=== PATIENT | female | born 1980 | race Caucasian/White ===

== ENCOUNTER 2016-11-28 10:48 | Inpatient (IN) | payer MEDICAID, OTHER ==
[~2016-11-28] VITALS: Ht 180.3 cm; Wt 186.4 kg
[2016-11-28 11:51] LABS: BASOPHILS % (AUTO) 0.7 % (0.0-2.0); EOSINOPHILS % (AUTO) 1.6 % (1.0-6.0); HEMATOCRIT 36.4 % (36-46); HEMOGLOBIN 12.1 g/dL (12.0-16.0); LYMPHOCYTES # (AUTO) 2.3 K/uL (1.0-4.8); LYMPHOCYTES % (AUTO) 28.4 % (22.0-44.0); MEAN CORPUSCULAR HEMOGLOBIN 29.7 pg (26.0-34.0); MEAN CORPUSCULAR HGB CONC 33.3 G/dL (31.0-37.0); MEAN CORPUSCULAR VOLUME 89 fL (80-100); MONOCYTES # (AUTO) 0.6 K/uL (0.1-1.0); MONOCYTES % (AUTO) 7.2 % (2.0-9.0); NEUTROPHILS # (AUTO) 5.1 K/uL (1.8-7.7); NEUTROPHILS % (AUTO) 62.1 % (40.0-70.0); PLATELET COUNT (AUTO) 238 K/uL (150-450); RED BLOOD CELL COUNT(AUTO) 4.09 MIL/uL (4.00-5.20); RED CELL DISTRIBUTION WIDTH 15.1 % (11.5-14.5); WHITE BLOOD COUNT (AUTO) 8.2 K/uL (4.5-11.0)
[2016-11-28 12:06] LABS: ANION GAP 10 mmol/L (8-16); CALCIUM, TOTAL 8.5 mg/dL (8.8-10.5); CARBON DIOXIDE 25 mmol/L (22-29); CHLORIDE 105 mmol/L (98-107); CREATININE 0.98 mg/dL (0.60-1.30); GLOMERULAR FILTR. RATE CALC > 60 mL/min (>60); POTASSIUM 3.4 mmol/L (3.5-5.1); SODIUM SERUM 140 mmol/L (136-145); UREA NITROGEN, BLOOD 18 mg/dL (7-18)
[2016-11-28 12:13] LABS: ALANINE AMINOTRANSFERASE 40 U/L (12-78); ALBUMIN 3.6 g/dL (3.4-5.0); ASPARTATE AMINOTRANSFERASE 27 U/L (15-37); BILIRUBIN,TOTAL 0.4 mg/dL (0.1-1.0); TOTAL PROTEIN, SERUM 7.8 g/dL (6.4-8.2)
[2016-11-28] MEDS ORDERED: ZOLPIDEM TARTRATE 10 MG TABLET PO PRN (18:30)
[2016-11-28] MEDS ORDERED: LORazepam 2 MG TABLET PO PRN (18:30)
[2016-11-28] MEDS ORDERED: HALOPERIDOL 5 MG TABLET PO PRN (18:30)
[2016-11-28] MEDS ORDERED: PERMETHRIN 5% 60 GM CREAM TP ONE (20:00)
[2016-11-28 21:14] VITALS: BP 143/84
[2016-11-29 07:11] LABS: THYROID STIMULATING HORMONE 2.25 uIU/mL (0.36-3.74)
[2016-11-29 08:06] VITALS: BP 163/114
[2016-11-29 08:25] VITALS: BP 146/102
[2016-11-29] MEDS ORDERED: ACETAMINOPHEN 325 MG TABLET PO PRN (09:45)
[2016-11-29] MEDS ORDERED: MAGNESIUM HYDROXIDE SUSPENSION 30 ML UDCUP PO PRN (09:45)
[2016-11-29] MEDS ORDERED: PETROLATUM,WHITE 71 GM JELLY TP PRN (09:45)
[2016-11-29] MEDS ORDERED: ONDANSETRON HCL 4 MG TABLET PO PRN (09:45)
[2016-11-29] MEDS: NYSTATIN 30 GM CREAM TP SCH (09:45)
[2016-11-29] MEDS ORDERED: MAG HYDROX/AL HYDROX/SIMETH ES 30 ML SUSPENSION UDCUP PO PRN (09:45)
[2016-11-29] MEDS ORDERED: IBUPROFEN 600 MG TABLET PO PRN (09:45)
[2016-11-29] MEDS ORDERED: BACITRACIN 28.4 GM OINTMENT TP PRN (09:45)
[2016-11-29] MEDS ORDERED: POTASSIUM CHLORIDE 20 MEQ ER TABLET PO ONE (09:45)
[2016-11-29] MEDS ORDERED: CloNIDine HCL 0.1 MG TABLET PO PRN (09:45)
[2016-11-29] MEDS ORDERED: BENZOCAINE/MENTHOL LOZENGE [8 LOZENGES/PACKET] MM PRN (09:45)
[2016-11-29] MEDS ORDERED: ALBUTEROL SULFATE HFA 90 MCG/PUFF 8 GM INHALER IH PRN (09:45)
[2016-11-29] MEDS ORDERED: LOPERAMIDE HCL 2 MG CAPSULE PO PRN (09:45)
[2016-11-29 17:00] VITALS: BP 140/82
[2016-11-29] MEDS: MUPIROCIN CALCIUM 2% 15 GM CREAM TP SCH (17:10)
[2016-11-30 07:07] LABS: HEMOGLOBIN A1C 6.8 % (4.5-6.2)
[2016-11-30 07:31] LABS: CHOL/HDL RATIO 4.6 (3.9-5.7); POTASSIUM 3.9 mmol/L (3.5-5.1)
[2016-11-30 09:09] VITALS: BP 135/75
[2016-11-30] MEDS: HYDROCHLOROTHIAZIDE 25 MG TABLET PO SCH (09:29)
[2016-11-30] MEDS: NYSTATIN 30 GM CREAM TP SCH (09:29)
[2016-11-30] MEDS: MUPIROCIN CALCIUM 2% 15 GM CREAM TP SCH ×2 (09:29→17:01)
[2016-11-30] MEDS: BuPROPion HCL XL 150 MG ER TABLET PO SCH (09:30)
[2016-11-30 18:47] VITALS: BP 141/72
[2016-12-01] MEDS: BuPROPion HCL XL 150 MG ER TABLET PO SCH (09:10)
[2016-12-01] MEDS: HYDROCHLOROTHIAZIDE 25 MG TABLET PO SCH (09:10)
[2016-12-01] MEDS: MUPIROCIN CALCIUM 2% 15 GM CREAM TP SCH ×2 (09:11→17:02)
[2016-12-01] MEDS: NYSTATIN 30 GM CREAM TP SCH (09:11)
[2016-12-01 09:40] VITALS: BP 146/78
[2016-12-01 16:52] VITALS: BP 155/87
[2016-12-02] MEDS ORDERED: BUPR-93 PO (09:14)
[2016-12-02] MEDS ORDERED: HYDR25TA PO (09:19)
[2016-12-02] MEDS: BuPROPion HCL XL 150 MG ER TABLET PO SCH (10:04)
[2016-12-02] MEDS: HYDROCHLOROTHIAZIDE 25 MG TABLET PO SCH (10:04)
[2016-12-02 10:41] VITALS: BP 146/98
== END 2016-12-02 10:40 | disposition home or self-care (01) | DRG 751 ==
LOC: EMS 10:50 → 3EI 19:42
PROVIDERS: ADMIT Psychiatry & Neurology Child & Adolescent Psychiatry; ATTEND Psychiatry & Neurology Psychiatry
DX: F33.2 Major depressive disorder, recurrent severe without psychotic features (principal); E11.65 Type 2 diabetes mellitus with hyperglycemia; I10 Essential (primary) hypertension; F15.20 Other stimulant dependence, uncomplicated; E66.01 Morbid (severe) obesity due to excess calories; Z72.0 Tobacco use; E87.6 Hypokalemia; F12.90 Cannabis use, unspecified, uncomplicated; K59.00 Constipation, unspecified; M54.5 Low back pain; L30.9 Dermatitis, unspecified; Z68.43 Body mass index [BMI] 50.0-59.9, adult
CPT/HCPCS: 82306; 83036; 84132; 84439; 84443; 99285; G0480

== ENCOUNTER 2018-01-12 20:44 | Inpatient (IN) | payer MEDICAID, OTHER ==
[~2018-01-12] VITALS: Ht 180.3 cm; Wt 203.6 kg
[~2018-01-12 20:44] MED LIST: BUPR-93 PO; HYDR25TA PO
[2018-01-12] MEDS ORDERED: CITA10TA68 PO (21:09)
[2018-01-12 21:34] LABS: BASOPHILS % (AUTO) 0.6 % (0.0-2.0); HEMATOCRIT 38.8 % (36-46); HEMOGLOBIN 12.8 g/dL (12.0-16.0); LYMPHOCYTES # (AUTO) 3.5 K/uL (1.0-4.8); LYMPHOCYTES % (AUTO) 38.9 % (22.0-44.0); MEAN CORPUSCULAR HEMOGLOBIN 29.1 pg (26.0-34.0); MEAN CORPUSCULAR VOLUME 88 fL (80-100); MONOCYTES # (AUTO) 0.6 K/uL (0.1-1.0); MONOCYTES % (AUTO) 6.5 % (2.0-9.0); NEUTROPHILS # (AUTO) 4.5 K/uL (1.8-7.7); PLATELET COUNT (AUTO) 267 K/uL (150-450); RED BLOOD CELL COUNT(AUTO) 4.39 MIL/uL (4.00-5.20); RED CELL DISTRIBUTION WIDTH 14.9 % (11.5-14.5)
[2018-01-12 21:44] LABS: ANION GAP 9 mmol/L (8-16); CALCIUM, TOTAL 8.9 mg/dL (8.8-10.5); CARBON DIOXIDE 27 mmol/L (22-29); CHLORIDE 105 mmol/L (98-107); CREATININE 0.93 mg/dL (0.60-1.30); GLOMERULAR FILTR. RATE CALC > 60 mL/min (>60); GLUCOSE,RANDOM 147 mg/dL (70-110); POTASSIUM 3.8 mmol/L (3.5-5.1); SODIUM SERUM 141 mmol/L (136-145); UREA NITROGEN, BLOOD 20 mg/dL (7-18)
[2018-01-12 21:50] LABS: ALANINE AMINOTRANSFERASE 34 U/L (12-78); ALBUMIN 3.4 g/dL (3.4-5.0); ALKALINE PHOSPHATASE 138 U/L (46-116); ASPARTATE AMINOTRANSFERASE 27 U/L (15-37); BILIRUBIN,TOTAL 0.2 mg/dL (0.1-1.0); TOTAL PROTEIN, SERUM 7.6 g/dL (6.4-8.2)
[2018-01-12 22:06] LABS: AMPHET/METH SCREEN,URINE POSITIVE (NEGATIVE); BARBITURATE SCREEN, URINE NEGATIVE (NEGATIVE); BENZODIAZEPINES SCREEN,URINE NEGATIVE (NEGATIVE); CANNABINOID SCREEN,URINE POSITIVE (NEGATIVE); COCAINE SCREEN,URINE NEGATIVE (NEGATIVE); METHADONE SCREEN, URINE NEGATIVE (NEGATIVE); OPIATE SCREEN,URINE NEGATIVE (NEGATIVE)
[2018-01-12 22:07] LABS: PHENCYCLIDINE SCREEN,URINE NEGATIVE (NEGATIVE)
[2018-01-12] MEDS ORDERED: HALOPERIDOL 5 MG TABLET PO PRN (22:30)
[2018-01-12] MEDS ORDERED: ZOLPIDEM TARTRATE 10 MG TABLET PO PRN (22:30)
[2018-01-12] MEDS ORDERED: LORazepam 2 MG TABLET PO PRN (22:30)
[2018-01-12 23:05] LABS: CHOL/HDL RATIO 4.9 (3.9-5.7); CHOLESTEROL 162 mg/dL (131-200); FREE T4 (FREE THYROXINE) 1.08 ng/dL (0.76-1.46); HDL CHOLESTEROL 33 mg/dL (40-60); LDL CHOL (CALC.) 94 mg/dL (0-130); THYROID STIMULATING HORMONE 1.29 uIU/mL (0.36-3.74); TRIGLYCERIDES 177 mg/dL (15-150)
[2018-01-12] MEDS ORDERED: SULFAMETHOX/TRIMETH DS 800-160 MG/TABLET PO ONE (23:15)
[2018-01-12] MEDS ORDERED: CEPHALEXIN MONOHYDRATE 500 MG CAPSULE PO ONE (23:15)
[2018-01-12 23:56] VITALS: BP 133/66
[2018-01-13 00:03] VITALS: BP 148/92
[2018-01-13] MEDS ORDERED: IBUPROFEN 400 MG TABLET PO PRN (06:30)
[2018-01-13] MEDS ORDERED: DOCUSATE SODIUM 100 MG CAPSULE PO PRN (06:30)
[2018-01-13] MEDS ORDERED: MAG HYDROX/AL HYDROX/SIMETH ES 30 ML SUSPENSION UDCUP PO PRN ×2 (06:30→12:00)
[2018-01-13] MEDS ORDERED: CloNIDine HCL 0.1 MG TABLET PO PRN (06:30)
[2018-01-13] MEDS ORDERED: ONDANSETRON HCL 4 MG TABLET PO PRN (06:30)
[2018-01-13] MEDS ORDERED: LOPERAMIDE HCL 2 MG CAPSULE PO PRN ×3 (06:30→12:00)
[2018-01-13] MEDS ORDERED: ALBUTEROL SULFATE HFA 90 MCG/PUFF 8 GM INHALER IH PRN (06:30)
[2018-01-13] MEDS ORDERED: PETROLATUM,WHITE 71 GM JELLY TP PRN (06:30)
[2018-01-13] MEDS ORDERED: ACETAMINOPHEN 325 MG TABLET PO PRN ×2 (06:30→12:00)
[2018-01-13] MEDS ORDERED: MAGNESIUM HYDROXIDE SUSPENSION 30 ML UDCUP PO PRN ×2 (06:30→12:00)
[2018-01-13 08:54] VITALS: BP 142/78
[2018-01-13] MEDS ORDERED: CEPHALEXIN MONOHYDRATE 500 MG CAPSULE PO ONE (09:00)
[2018-01-13] MEDS: NICOTINE 14 MG/24 HOUR PATCH TD SCH (09:00)
[2018-01-13] MEDS ORDERED: PNEUMOCOCCAL VACCINE POLYVALENT 0.5 ML VIAL [PPSV23] IM ONE (10:45)
[2018-01-13] MEDS ORDERED: OLANZapine 5 MG RAPDIS TABLET PO PRN (12:00)
[2018-01-13] MEDS ORDERED: PROMETHAZINE HCL 25 MG TABLET PO PRN (12:00)
[2018-01-13] MEDS ORDERED: GuaiFENesin/D-METHORPHAN [SUGAR-FREE] 200-20MG/10 ML SYRUP UDCUP PO PRN (12:00)
[2018-01-13] MEDS ORDERED: HydrOXYzine PAMOATE 50 MG CAPSULE PO PRN (12:00)
[2018-01-13] MEDS ORDERED: TUBERCULIN, PURIFIED PROTEIN DERIVATIVE 5 TU/0.1 ML SYG ID ONE (12:00)
[2018-01-13] MEDS: CYANOCOBALAMIN 1,000 MCG/ML VIAL IM ONE ×2 (12:08→12:13)
[2018-01-13] MEDS: CEPHALEXIN MONOHYDRATE 500 MG CAPSULE PO SCH (12:14)
[2018-01-13] MEDS: SULFAMETHOX/TRIMETH DS 800-160 MG/TABLET PO SCH (12:14)
[2018-01-13] MEDS: MetFORMIN HCL 500 MG TABLET PO SCH (17:54)
[2018-01-13] MEDS: THIAMINE HCL 100 MG TABLET PO SCH (17:54)
[2018-01-13 17:59] VITALS: BP 124/65
[2018-01-13] MEDS ORDERED: OLANZapine 5 MG RAPDIS TABLET PO SCH (21:00)
[2018-01-14] MEDS: MetFORMIN HCL 500 MG TABLET PO SCH ×2 (07:01→17:30)
[2018-01-14 08:15] VITALS: BP 164/111
[2018-01-14] MEDS: NICOTINE 14 MG/24 HOUR PATCH TD SCH (09:00)
[2018-01-14] MEDS: SULFAMETHOX/TRIMETH DS 800-160 MG/TABLET PO SCH (10:10)
[2018-01-14] MEDS: MULTIVITAMINS WITH MINERALS, THERAPEUTIC TABLET PO SCH (10:10)
[2018-01-14] MEDS: FOLIC ACID 1 MG TABLET PO SCH (10:11)
[2018-01-14] MEDS: NALTREXONE HCL 50 MG TABLET PO SCH (10:11)
[2018-01-14] MEDS: THIAMINE HCL 100 MG TABLET PO SCH ×2 (10:11→17:00)
[2018-01-14] MEDS: FLUoxetine HCL 20 MG CAPSULE PO SCH (10:11)
[2018-01-14] MEDS: CEPHALEXIN MONOHYDRATE 500 MG CAPSULE PO SCH (10:11)
[2018-01-14 19:31] VITALS: BP 137/81
[2018-01-14] MEDS: OLANZapine 10 MG RAPDIS TABLET PO SCH (20:57)
[2018-01-15] MEDS: MetFORMIN HCL 500 MG TABLET PO SCH ×3 (06:40→18:10)
[2018-01-15 08:00] VITALS: BP 151/90
[2018-01-15] MEDS ORDERED: AmLODIPine BESYLATE 2.5 MG TABLET PO SCH (09:00)
[2018-01-15] MEDS: CEPHALEXIN MONOHYDRATE 500 MG CAPSULE PO SCH (09:00)
[2018-01-15] MEDS: MULTIVITAMINS WITH MINERALS, THERAPEUTIC TABLET PO SCH (09:00)
[2018-01-15] MEDS: NICOTINE 14 MG/24 HOUR PATCH TD SCH (09:00)
[2018-01-15] MEDS: SULFAMETHOX/TRIMETH DS 800-160 MG/TABLET PO SCH (09:00)
[2018-01-15] MEDS: NALTREXONE HCL 50 MG TABLET PO SCH (09:00)
[2018-01-15] MEDS: FOLIC ACID 1 MG TABLET PO SCH (09:00)
[2018-01-15] MEDS: THIAMINE HCL 100 MG TABLET PO SCH ×2 (09:00→17:00)
[2018-01-15] MEDS: FLUoxetine HCL 20 MG CAPSULE PO SCH (09:00)
[2018-01-15] MEDS: OLANZapine 10 MG RAPDIS TABLET PO SCH (21:00)
[2018-01-15 21:28] VITALS: BP 148/91
[2018-01-16] MEDS: MetFORMIN HCL 500 MG TABLET PO SCH ×2 (07:08→16:51)
[2018-01-16] MEDS: NICOTINE 14 MG/24 HOUR PATCH TD SCH (09:00)
[2018-01-16] MEDS: FLUoxetine HCL 20 MG CAPSULE PO SCH (09:00)
[2018-01-16] MEDS: NALTREXONE HCL 50 MG TABLET PO SCH (09:00)
[2018-01-16] MEDS: THIAMINE HCL 100 MG TABLET PO SCH ×2 (09:00→16:51)
[2018-01-16] MEDS: MULTIVITAMINS WITH MINERALS, THERAPEUTIC TABLET PO SCH (09:00)
[2018-01-16] MEDS: FOLIC ACID 1 MG TABLET PO SCH (09:00)
[2018-01-16] MEDS: AmLODIPine BESYLATE 5 MG TABLET PO SCH (09:00)
[2018-01-16 09:13] VITALS: BP 145/78
[2018-01-16] MEDS: SULFAMETHOX/TRIMETH DS 800-160 MG/TABLET PO SCH (09:30)
[2018-01-16] MEDS: CEPHALEXIN MONOHYDRATE 500 MG CAPSULE PO SCH (09:30)
[2018-01-16] MEDS: OLANZapine 10 MG RAPDIS TABLET PO SCH (20:14)
[2018-01-17] MEDS: MetFORMIN HCL 500 MG TABLET PO SCH ×2 (07:19→17:30)
[2018-01-17 08:00] VITALS: BP 160/95
[2018-01-17] MEDS: THIAMINE HCL 100 MG TABLET PO SCH ×2 (09:00→17:00)
[2018-01-17] MEDS: NICOTINE 14 MG/24 HOUR PATCH TD SCH (09:00)
[2018-01-17] MEDS: FOLIC ACID 1 MG TABLET PO SCH (09:00)
[2018-01-17] MEDS: MULTIVITAMINS WITH MINERALS, THERAPEUTIC TABLET PO SCH (09:00)
[2018-01-17] MEDS: NALTREXONE HCL 50 MG TABLET PO SCH (09:00)
[2018-01-17] MEDS: AmLODIPine BESYLATE 5 MG TABLET PO SCH (09:00)
[2018-01-17] MEDS: FLUoxetine HCL 20 MG CAPSULE PO SCH (09:00)
[2018-01-17] MEDS: SULFAMETHOX/TRIMETH DS 800-160 MG/TABLET PO SCH (12:37)
[2018-01-17] MEDS: CEPHALEXIN MONOHYDRATE 500 MG CAPSULE PO SCH (12:37)
[2018-01-17] MEDS: OLANZapine 10 MG RAPDIS TABLET PO SCH (21:37)
[2018-01-17 21:44] VITALS: BP 150/90
[2018-01-18] MEDS: MetFORMIN HCL 500 MG TABLET PO SCH ×2 (06:44→17:45)
[2018-01-18 08:00] VITALS: BP 164/84
[2018-01-18] MEDS: NALTREXONE HCL 50 MG TABLET PO SCH (09:00)
[2018-01-18] MEDS: NICOTINE 14 MG/24 HOUR PATCH TD SCH (09:00)
[2018-01-18] MEDS: AmLODIPine BESYLATE 5 MG TABLET PO SCH (11:21)
[2018-01-18] MEDS: FLUoxetine HCL 20 MG CAPSULE PO SCH (11:22)
[2018-01-18] MEDS: CEPHALEXIN MONOHYDRATE 500 MG CAPSULE PO SCH (11:22)
[2018-01-18] MEDS: FOLIC ACID 1 MG TABLET PO SCH (11:23)
[2018-01-18] MEDS: MULTIVITAMINS WITH MINERALS, THERAPEUTIC TABLET PO SCH (11:23)
[2018-01-18] MEDS: THIAMINE HCL 100 MG TABLET PO SCH ×2 (11:24→17:45)
[2018-01-18] MEDS: SULFAMETHOX/TRIMETH DS 800-160 MG/TABLET PO SCH (11:24)
[2018-01-18] MEDS: OLANZapine 10 MG RAPDIS TABLET PO SCH (20:09)
[2018-01-19] MEDS: MetFORMIN HCL 500 MG TABLET PO SCH ×2 (06:54→17:27)
[2018-01-19] MEDS: NICOTINE 14 MG/24 HOUR PATCH TD SCH (09:00)
[2018-01-19] MEDS: SULFAMETHOX/TRIMETH DS 800-160 MG/TABLET PO SCH (09:30)
[2018-01-19] MEDS: AmLODIPine BESYLATE 5 MG TABLET PO SCH (09:30)
[2018-01-19] MEDS: MULTIVITAMINS WITH MINERALS, THERAPEUTIC TABLET PO SCH (09:30)
[2018-01-19] MEDS: FLUoxetine HCL 20 MG CAPSULE PO SCH (09:30)
[2018-01-19] MEDS: NALTREXONE HCL 50 MG TABLET PO SCH (09:30)
[2018-01-19] MEDS: CEPHALEXIN MONOHYDRATE 500 MG CAPSULE PO SCH (09:31)
[2018-01-19] MEDS: FOLIC ACID 1 MG TABLET PO SCH (09:31)
[2018-01-19] MEDS: THIAMINE HCL 100 MG TABLET PO SCH ×2 (09:31→17:24)
[2018-01-19 10:36] VITALS: BP 152/82
[2018-01-19 17:00] VITALS: BP 146/96
[2018-01-19] MEDS ORDERED: PROPRANOLOL HCL 10 MG TABLET PO SCH (21:00)
[2018-01-19] MEDS: OLANZapine 10 MG RAPDIS TABLET PO SCH (21:09)
[2018-01-19] MEDS: ROPINIRole HCL 1 MG TABLET PO SCH (21:09)
[2018-01-20] MEDS: MetFORMIN HCL 500 MG TABLET PO SCH ×2 (07:06→17:30)
[2018-01-20 09:05] VITALS: BP 159/93
[2018-01-20] MEDS: AmLODIPine BESYLATE 5 MG TABLET PO SCH (11:11)
[2018-01-20] MEDS: THIAMINE HCL 100 MG TABLET PO SCH ×2 (11:11→17:45)
[2018-01-20] MEDS: SULFAMETHOX/TRIMETH DS 800-160 MG/TABLET PO SCH (11:11)
[2018-01-20] MEDS: FOLIC ACID 1 MG TABLET PO SCH (11:11)
[2018-01-20] MEDS: NALTREXONE HCL 50 MG TABLET PO SCH (11:12)
[2018-01-20] MEDS: MULTIVITAMINS WITH MINERALS, THERAPEUTIC TABLET PO SCH (11:12)
[2018-01-20] MEDS: NICOTINE 14 MG/24 HOUR PATCH TD SCH (11:12)
[2018-01-20] MEDS: ROPINIRole HCL 1 MG TABLET PO SCH (11:12)
[2018-01-20] MEDS: CEPHALEXIN MONOHYDRATE 500 MG CAPSULE PO SCH (11:13)
[2018-01-20] MEDS: FLUoxetine HCL 20 MG CAPSULE PO SCH (11:15)
[2018-01-20 18:00] VITALS: BP 150/86
[2018-01-20] MEDS: OLANZapine 10 MG RAPDIS TABLET PO SCH (20:35)
[2018-01-20] MEDS ORDERED: PROPRANOLOL HCL 20 MG TABLET PO SCH (21:00)
[2018-01-21 00:54] VITALS: BP 123/72
[2018-01-21] MEDS: MetFORMIN HCL 500 MG TABLET PO SCH (06:42)
[2018-01-21] MEDS ORDERED: FLUO-191 PO (08:23)
[2018-01-21] MEDS ORDERED: NALT50TA6 PO (08:23)
[2018-01-21] MEDS ORDERED: PROP20TA18 PO (08:24)
[2018-01-21] MEDS ORDERED: ROPI2 PO (08:24)
[2018-01-21] MEDS ORDERED: OLAN10TA6 PO (08:24)
[2018-01-21] MEDS ORDERED: METF500T6 PO (08:30)
[2018-01-21] MEDS ORDERED: AMLO-511 PO (08:30)
[2018-01-21] MEDS ORDERED: CEPH500 PO (08:30)
[2018-01-21] MEDS ORDERED: SULF1TAB42 PO (08:31)
[2018-01-21 08:44] VITALS: BP 124/87
[2018-01-21] MEDS: AmLODIPine BESYLATE 5 MG TABLET PO SCH (09:00)
[2018-01-21] MEDS: FOLIC ACID 1 MG TABLET PO SCH (09:00)
[2018-01-21] MEDS ORDERED: FLUoxetine HCL 20 MG CAPSULE PO SCH (09:00)
[2018-01-21] MEDS: SULFAMETHOX/TRIMETH DS 800-160 MG/TABLET PO SCH (09:00)
[2018-01-21] MEDS: CEPHALEXIN MONOHYDRATE 500 MG CAPSULE PO SCH (09:01)
[2018-01-21] MEDS: NALTREXONE HCL 50 MG TABLET PO SCH (09:01)
[2018-01-21] MEDS: MULTIVITAMINS WITH MINERALS, THERAPEUTIC TABLET PO SCH (09:01)
[2018-01-21] MEDS: NICOTINE 14 MG/24 HOUR PATCH TD SCH (09:01)
[2018-01-21] MEDS: THIAMINE HCL 100 MG TABLET PO SCH (09:01)
== END 2018-01-21 12:48 | disposition home or self-care (01) | DRG 750 ==
LOC: EMS 20:48 → AHU 23:28 → 3EI 01-13 17:26
PROVIDERS: ADMIT Psychiatry & Neurology Psychiatry; ATTEND Psychiatry & Neurology Psychiatry
DX: F25.9 Schizoaffective disorder, unspecified (principal); L03.115 Cellulitis of right lower limb; Z68.44 Body mass index [BMI] 60.0-69.9, adult; R45.851 Suicidal ideations; L03.116 Cellulitis of left lower limb; E66.01 Morbid (severe) obesity due to excess calories; I10 Essential (primary) hypertension; G25.81 Restless legs syndrome; Z28.21 Immunization not carried out because of patient refusal; F17.210 Nicotine dependence, cigarettes, uncomplicated; E11.9 Type 2 diabetes mellitus without complications; E78.5 Hyperlipidemia, unspecified; F12.90 Cannabis use, unspecified, uncomplicated; F32.9 Major depressive disorder, single episode, unspecified; G47.33 Obstructive sleep apnea (adult) (pediatric); F15.10 Other stimulant abuse, uncomplicated; F19.10 Other psychoactive substance abuse, uncomplicated; Z65.3 Problems related to other legal circumstances; M54.9 Dorsalgia, unspecified; G89.29 Other chronic pain; Z59.0 Homelessness; Z79.899 Other long term (current) drug therapy; Z91.19 Patient's noncompliance with other medical treatment and regimen; Z71.51 Drug abuse counseling and surveillance of drug abuser
CPT/HCPCS: 83036; 84439; 84443; 99285; G0480; J3420